=== PATIENT | male | born 1950 | race Caucasian/White ===

== ENCOUNTER → 2021-05-04 | Outpatient (CLI) | payer MEDICARE, OTHER ==
[~2021-05-04] MED LIST: HCTZ 25MG TAB25 MG PO
== END ==
LOC: COL.RAD 14:44
DX: R13.10 Dysphagia, unspecified (principal)

== ENCOUNTER 2021-06-14 09:00 | Outpatient (RCR) | payer MEDICARE, OTHER ==
[2021-08-03] MEDS ORDERED: HCTZ 25MG TAB25 MG PO (12:10)
[2021-08-06] MEDS ORDERED: HCTZ 25MG TAB25 MG PO (08:14)
== END 2021-07-27 | disposition home or self-care (01) ==
LOC: WSST
DX: R13.10 Dysphagia, unspecified (principal)

== ENCOUNTER → 2021-06-30 | Outpatient (CLI) | payer MEDICARE, OTHER | LOC: COL.RAD 06-25 11:00 | DX: K44.9 Diaphragmatic hernia without obstruction or gangrene (principal); K22.2 Esophageal obstruction ==

== ENCOUNTER → 2021-07-19 | Outpatient (CLI) | payer MEDICARE, OTHER | LOC: COL.LAB 12:46 | DX: C15.9 Malignant neoplasm of esophagus, unspecified (principal) ==

== ENCOUNTER → 2021-08-03 | Day surgery (SDC) | payer MEDICARE, OTHER ==
[~2021-08-03] VITALS: Ht 167.6 cm; Wt 82.2 kg
[2021-08-03 12:04] VITALS: BP 146/84; PULSE 57; TEMP 98
[2021-08-03 14:00] VITALS: BP 116/93; PULSE 61; TEMP 96.6
--- NOTE | 2021-08-03 14:05 | NUR ---
PT GIVEN APPLE JUICE AND TOLERATES WELL. STARTED TO GIVE DC INSTRUCTIONS WHEN DR LAWS ARRIVED AND SPOKE TO FAMILY REDAREDING WHAT THE CT BX RESULTS WERE AND WHAT THE NEXT STEPS WOULD NEED TO BE. 1415VSS. PT A/O X4. 1430VSS. DDR VETO STIL WITH FAMILY. 1440int dc'd intact with kpressure dressing applied. went over the dc information and gave diet info to family. ALL QUESTIONS INVITED AND ANSWERED. 1445 PATIENT AND TAKEN TO POV, DAUGHTER BROUGHT CAR ARAOUND TO ENTRANCE. PT GLADYS TO GET INTO CAR WITH MINIMAL ASSIT.
[2021-08-03 14:15] VITALS: BP 138/82; PULSE 52
[2021-08-03 14:30] VITALS: BP 142/86; PULSE 51
== END ==
LOC: SDCO 11:11
DX: C15.9 Malignant neoplasm of esophagus, unspecified (principal); K22.2 Esophageal obstruction; I10 Essential (primary) hypertension; Z20.822 Contact with and (suspected) exposure to COVID-19; F17.210 Nicotine dependence, cigarettes, uncomplicated; J44.9 Chronic obstructive pulmonary disease, unspecified
CPT/HCPCS: C1726; C1769; C1874; J2704; J7030

== ENCOUNTER 2021-08-10 06:37 | Outpatient (CLI) | payer MEDICARE, OTHER ==
[~2021-08-10] VITALS: Ht 167.6 cm; Wt 81.1 kg
[2021-08-10] VITALS (13 sets, daily range): BP systolic 125–144; BP diastolic 71–86; PULSE 57–68; TEMP 97.9
--- NOTE | 2021-08-10 07:45 | NUR ---
BROUGHT BACK TO CT, PLACED ON TABLE.
--- NOTE | 2021-08-10 11:00 | NUR ---
Pt has done well during his recovery. Dr. Valentino has been back in to discuss chest xray and poc with pt. Pt verbalizes understanding of dc instructions r/t lung biopsy. daughter and also verbalize understanding of instructions. iv is dc'd with cath intact, dressing applied. Pt escorted to exit via wheelchair.
== END 2021-08-10 11:00 | disposition home or self-care (01) ==
LOC: COL.RAD 06:37
DX: C34.91 Malignant neoplasm of unspecified part of right bronchus or lung (principal); R91.1 Solitary pulmonary nodule; J93.9 Pneumothorax, unspecified; Z96.89 Presence of other specified functional implants
CPT/HCPCS: 32107

== ENCOUNTER 2021-08-13 09:27 | Day surgery (SDC) | payer MEDICARE, OTHER ==
[~2021-08-13] VITALS: Ht 170.2 cm; Wt 83.3 kg
--- NOTE | 2021-08-13 10:06 | NUR ---
Patient ambulated back to bay #2 without difficulty. Height and weight obtained. Vitals obtained. Consent signed and patient verbalized understanding. See physical history. Will continue to monitor. Patient has call christopher
[2021-08-13 10:21] VITALS: BP 129/83; PULSE 61; TEMP 98.7
[2021-08-13 11:30] VITALS: BP 118/79; PULSE 63
--- NOTE | 2021-08-13 11:30 | NUR ---
Patient returns to bay 2 per cart and transfers from cart to recliner with one person assist. IV fluids infusing and site is free of redness. Given Sprite to sip on. Instructed to stay on clear liquids for 24 hours.
[2021-08-13 11:45] VITALS: BP 139/84; PULSE 58
--- NOTE | 2021-08-13 11:45 | NUR ---
Sipping on Sprite and resting without pain.
[2021-08-13 12:00] VITALS: BP 135/76; PULSE 63
--- NOTE | 2021-08-13 12:00 | NUR ---
Ready for discharge and family notified.
--- NOTE | 2021-08-13 12:10 | NUR ---
IV discontinued and patient dresses self.
[2021-08-13 12:26] VITALS: BP 123/84; PULSE 62
--- NOTE | 2021-08-13 12:33 | NUR ---
Dismissal instructions signed and patient dismissed to home driven by son. Family instructed to keep patient in clear liquid diet for 24 hours and resume stent diet that was provided to him when stent was placed.
== END 2021-08-13 12:33 | disposition home or self-care (01) ==
LOC: SDCO 09:27
DX: C15.9 Malignant neoplasm of esophagus, unspecified (principal); K22.2 Esophageal obstruction; T18.2XXA Foreign body in stomach, initial encounter; R93.3 Abnormal findings on diagnostic imaging of other parts of digestive tract; R11.10 Vomiting, unspecified; I10 Essential (primary) hypertension; J44.9 Chronic obstructive pulmonary disease, unspecified; F17.210 Nicotine dependence, cigarettes, uncomplicated; Z79.899 Other long term (current) drug therapy; Z96.89 Presence of other specified functional implants
CPT/HCPCS: C1726; J2704; J7030

== ENCOUNTER → 2021-08-18 | Outpatient (CLI) | payer MEDICARE, OTHER ==
[~2021-08-18] VITALS: Ht 167.6 cm; Wt 85.0 kg
[2021-08-18 08:32] VITALS: BP 135/81; PULSE 64; TEMP 98
[2021-08-18 09:22] VITALS: BP 128/78; PULSE 62
== END ==
LOC: COL.RAD 09:00
DX: D11.9 Benign neoplasm of major salivary gland, unspecified (principal); C15.9 Malignant neoplasm of esophagus, unspecified
CPT/HCPCS: 32108

== ENCOUNTER 2021-10-29 13:31 | Day surgery (SDC) | payer MEDICARE, OTHER ==
[~2021-10-29] VITALS: Ht 167.6 cm; Wt 85.7 kg
--- NOTE | 2021-10-29 14:00 | NUR ---
70 year old male admitted to [facility] #5 via ambulation. His was present in the waiting room, however she left and gave us her phone number for pickup. Patient is alert and oriented x3. Height and weight obtained. Medications and HX reviewed. Procedure verified and consent signed. Patient verbalized understanding of procedure. Physical assessment completed. IV started in R AC on forth attempt. Port was attempted to be accessed by MAYRA Stack; however no blood return was acquired. Patient stated he could taste the IV flush and feel the cold fluids, but no blood return was noted. Dressing applied to the site. IV started R AC with the help of MAYRA Whalen. IVF infusing without difficulty. Vitals obtained. Call christopher is within reach. First and last name + verified with the patient. Patient has on a clean gown and states being ready for the procedure.
[2021-10-29 14:49] VITALS: BP 125/83; PULSE 82; TEMP 98.6
[2021-10-29 15:40] VITALS: BP 120/70; PULSE 86; TEMP 98.1
--- NOTE | 2021-10-29 15:40 | NUR ---
PATIENT TRANSPORTED PER CART FROM GI SUITE TO BAY 5 ACCOMPANIED BY ENDO RN. PATIENT AMBULATED FROM CART TO CHAIR WITH 2 ASSIST AND STEADY GAIT. MONITORS APPLIED. VSS ON ROOM AIR. PATIENT TALKS WITH STAFF. VERBAL REPORT RECIEVED.
[2021-10-29 15:45] VITALS: BP 128/84; PULSE 70
--- NOTE | 2021-10-29 15:50 | NUR ---
DR CROFT SPEAKS WITH PATIENT.
[2021-10-29 16:00] VITALS: BP 138/95; PULSE 79
--- NOTE | 2021-10-29 16:00 | NUR ---
VSS ON ROOM AIR. PATIENT MOVING ARM WHILE BP WAS BEENING TAKEN. PATIENT TOLERATES JUICE AND APPLE SAUCE WITHOUT PROBLEMS. PATIENT WATCHING TV. PATIENT CALLED AND IS DOWNSTAIRS WAITING ON PATIENT.
[2021-10-29 16:15] VITALS: BP 142/74; PULSE 81
--- NOTE | 2021-10-29 16:15 | NUR ---
VSS ON ROOM AIR. PATIENT TOLERATES FOOD AND DRINK WITHOUT PROBLEMS. PATIENT WATCHING TV. PATIENT STATES READY TO GO HOME. IV DC'D CATHETER TIP INTACT. PRESSURE AND BANDAGE APPLIED. DISCHARGE INSTRUCTIONS GIVEN VERBAL AND DISCHARGE PACKET PROVIDED TO PATIENT. QUESTIONS ANSWERED AND PATIENT VOICED UNDERSTANDING. PATIENT CHANGES INTO STREET CLOTHES. PATIENT DISCHARGED PER WHEEL CHAIR. ACCOMPANIES PATIENT TO PRIVATE VECHILE DRIVEN BY SON IN LAW.
== END 2021-10-29 16:28 | disposition home or self-care (01) ==
LOC: SDCO 13:31
DX: K22.2 Esophageal obstruction (principal); T18.2XXA Foreign body in stomach, initial encounter; C15.9 Malignant neoplasm of esophagus, unspecified; T85.591A Other mechanical complication of esophageal anti-reflux device, initial encounter; I10 Essential (primary) hypertension; J44.9 Chronic obstructive pulmonary disease, unspecified; F17.210 Nicotine dependence, cigarettes, uncomplicated; Z85.828 Personal history of other malignant neoplasm of skin
CPT/HCPCS: C1726; J2704; J7030

== ENCOUNTER 2022-01-28 09:20 | Day surgery (SDC) | payer MEDICARE, OTHER ==
[~2022-01-28] VITALS: Ht 172.7 cm; Wt 81.2 kg
[2022-01-28 10:48] VITALS: BP 122/84; PULSE 78; TEMP 98
[2022-01-28 12:25] VITALS: BP 103/70; PULSE 72; TEMP 98
[2022-01-28 12:30] VITALS: BP 104/75; PULSE 69
[2022-01-28 12:45] VITALS: BP 117/80; PULSE 63
[2022-01-28 13:00] VITALS: BP 113/76; PULSE 59
[2022-01-28 13:15] VITALS: BP 124/80; PULSE 64
--- NOTE | 2022-01-28 13:40 | NUR ---
1225 Pt returns from endo procedure via cart and RN assist to GI [place] [facility]. Pt ambulates from cart to recliner with RN assist. Monitors on and alarms set. Call light within reach. Report received from MAYRA Whalen. Pt alert and oriented. Pt requests Diet Coke and no food. Pt denies any pain or nausea. 1240 Pt taking drink well. No complications noted. 1325 Discharge instructions given to pt and family. All questions answered to their satisfaction. Handed to pt are a thank you card and discharge information. 1340 Pt transferred out of the hospital via wheelchair and Sherrell assist, to private vehicle driven by family.
== END 2022-01-28 13:40 | disposition home or self-care (01) ==
LOC: SDCO 09:20
DX: C15.9 Malignant neoplasm of esophagus, unspecified (principal); K22.2 Esophageal obstruction; K44.9 Diaphragmatic hernia without obstruction or gangrene; K29.70 Gastritis, unspecified, without bleeding; Q40.2 Other specified congenital malformations of stomach; C34.90 Malignant neoplasm of unspecified part of unspecified bronchus or lung; F17.210 Nicotine dependence, cigarettes, uncomplicated
CPT/HCPCS: J2704; J7030